=== PATIENT | male | born 1950 | race Caucasian/White ===

== ENCOUNTER → 2016-07-14 | Outpatient (CLI) | payer MEDICARE ==
[~2016-07-14] MED LIST: AMARYL 4MG. TAB4 MG PO; ASPIRIN 81MG TA81 MG PO; BUSPIRONE HCL10 MG PO; BYSTOLIC5 MG PO; CENTRUM SILVER1 EACH PO; DOXAZOSIN 4MG TA4 MG PO; JANUVIA50 MG PO; LOSARTAN POTASS1 TA1 PO; METFORMIN1000 MG PO; METOCLOPRAMIDE10 M2 PO; NEXIUM40 MG/PACK PO; VITAMIN E 400400 IU PO; VYTORIN 10 MG-21 TAB PO
[2016-07-14 11:56] LABS: LYMPH # 1.3 K/mm3 (0.7-4.5); LYMPH % 18.1 % (10-50)
[2016-07-14 13:04] LABS: BUN 11 mg/dL (7-18)
[2016-07-14 13:13] LABS: GFR (ESTIMATED) 75 ML/MIN (>60)
[2016-07-20 19:18] LABS: BARTONELLA HENSELAE IGG NEGATIVE TITER (< 1:64)
== END ==
LOC: LAB 11:40
PROVIDERS: Internal Medicine Adolescent Medicine
DX: R59.0 Localized enlarged lymph nodes (principal)

== ENCOUNTER → 2017-03-01 | Outpatient (CLI) | payer MEDICARE ==
[~2017-03-01] MED LIST changes: +BISOPROLOL FUMAR5 MG; +GLIPIZIDE ER 5MG5 MG; +GOOD SENSE OMEP20 MG; +HYDRALAZINE50 MG; +ONGLYZA5 MG; +TAMSULOSIN HYD0.4 MG
[2017-03-01 11:46] LABS: BUN 16 mg/dL (7-18)
[2017-03-01 12:10] LABS: GFR (ESTIMATED) 55 ML/MIN (>60)
[2017-03-01 12:24] LABS: HEMOGLOBIN 11.4 g/dL (14.1-18.0); LYMPH % 17.2 % (10-50)
[2017-03-01 12:25] LABS: LYMPH # 1.2 K/mm3 (0.7-4.5)
== END ==
LOC: LAB 08:29
PROVIDERS: Internal Medicine Adolescent Medicine
DX: E11.9 Type 2 diabetes mellitus without complications (principal); I25.10 Atherosclerotic heart disease of native coronary artery without angina pectoris; R10.11 Right upper quadrant pain

== ENCOUNTER → 2017-04-09 | Outpatient (CLI) | payer MEDICARE ==
[2017-04-09 12:18] LABS: BUN 23 mg/dL (7-18)
[2017-04-09 12:19] LABS: GFR (ESTIMATED) 55 ML/MIN (>60)
== END ==
LOC: LAB 09:45 → RT 09:45
PROVIDERS: Surgery
DX: I10 Essential (primary) hypertension (principal); Z01.812 Encounter for preprocedural laboratory examination